=== PATIENT | male | born 1995 | race Hispanic/Latino ===

== ENCOUNTER 2018-12-23 11:31 | Emergency (ER) | payer SELFPAY ==
[2018-12-23 11:47] LABS: #Basophils 0.1 thou/uL (0.0-0.2); #Eosinphils 0.3 thou/uL (0.0-0.7); #Lymphocytes 2.3 thou/uL (1.20-3.40); #Monocytes 0.7 thou/uL (0.11-0.59); #Neutrophils 7.4 thou/uL (1.40-6.50); %Basophils 1.1 % (0.0-1.0); %Eosinophils 2.9 % (0.0-10.0); %Lymphocytes 21.4 % (21.0-51.0); %Monocytes 6.5 % (0.0-10.0); %Neutrophils 68.1 % (42.0-75.0); Hemoglobin 16.1 g/dL (14.0-18.0); Mean Corpuscular HGB CONC 33.1 g/dL (32.0-36.0); Mean Corpuscular Hemoglobin 28.4 pg (27.0-31.0); Mean Corpuscular Volume 85.7 fL (78.0-98.0); Platelet Count 322 thou/uL (130-400); RBC Distribution Width 11.6 % (11.5-14.5); Red Blood Cell (RBC) Count 5.68 mill/uL (4.70-6.10); White Blood Cell (WBC) Count 10.8 thou/uL (4.8-10.8)
--- NOTE | 2018-12-23 11:59 | CT ---
CT HEAD WITHOUT CONTRAST: Date: 12/23/18 Multiple axial tomograms obtained through head without IV enhancement. INDICATION: Trauma. FINDINGS: Ventricles have normal size and position. No evidence of intracranial hemorrhage. No mass, edema, inf arct, or other acute process identified. The visualized sinus and mastoids are well aerated. IMPRESSION: No acute abnormality identified. POS: [facility]
[2018-12-23 12:02] LABS: ALT (SGPT) 20 U/L (8-55); AST (SGOT) 24 U/L (5-34); Albumin 4.8 g/dL (3.5-5.0); Alkaline Phosphatase 92 U/L (40-150); Anion Gap 13 mmol/L (10-20); BUN (Urea Nitrogen) 11 mg/dL (8.9-20.6); Bilirubin, Total 0.5 mg/dL (0.2-1.2); Calc. Creatinine Clearance 0 mL/min (70-130); Calcium 10.6 mg/dL (7.8-10.44); Carbon Dioxide 24 mmol/L (22-29); Chloride 106 mmol/L (98-107); Estimated GFR-MDRD Greater than 90; Globulin 3.1 g/dL (2.4-3.5); Glucose 114 mg/dL (70-105); Protein, Total 7.9 g/dL (6.0-8.3); Sodium 139 mmol/L (136-145)
--- NOTE | 2018-12-23 12:10 | CT ---
CT CERVICAL SPINE: Multiple axial tomograms were obtained through the cervical spine with multiplanar reconstruction. INDICATION: Trauma. 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 Cervical vertebrae otherwise maintain normal height and alignme nt. Mild degenerative changes are noted. Mild osteophytes are seen from the cervical vertebrae. Th ere is no evidence of compression deformity. No evidence of fracture. IMPRESSION: No acute fracture identified. POS: [facility]
[2018-12-23] MEDS ORDERED: Ketorolac Tromethamine 30 MG/ML VIAL ONE (12:23)
--- NOTE | 2018-12-23 12:32 | CT ---
CT CHEST AND ABDOMEN AND PELVIS: Multiple axial tomograms were obtained through the chest, abdomen, and pelvis with IV enhancement. INDICATION: Trauma. FINDINGS: CT CHEST: The lungs appear well aerated and clear. There is no evidence of effusion or pneumothorax. Mediasti num unremarkable. The bony thorax appears intact. IMPRESSION: No acute chest injury identified. CT ABDOMEN AND PELVIS: Liver, spleen, pancreas, and kidneys appear unremarkable. No evidence of solid organ injury. No kathia e fluid or blood in the abdomen or pelvis. Bowel loops unremarkable. The urinary bladder is distend ed and intact. Aorta unremarkable. The bony pelvis appears intact. IMPRESSION: No acute intraabdominal injury. CT THORACIC AND LUMBAR SPINE: Thoracic and lumbar vertebrae maintain normal height and alignment. NO compression deformity. No ev idence of acute fracture. IMPRESSION: No evidence of thoracic or lumbar spine fracture. POS: [facility]
--- NOTE | 2018-12-23 13:04 | RAD ---
XR Shoulder Lt 3 View STANDARD History: Fall. Pain. Comparison: None. Findings: No acute fracture or malalignment. Soft tissues are mildly swollen. Impression: No acute osseous abnormality.
[2018-12-23] MEDS ORDERED: Iopamidol 370 76% 100 ML VIAL ONE (14:00)
== END 2018-12-23 12:52 | disposition home or self-care (01) ==
LOC: BURERS 11:31
DX: S20.229A Contusion of unspecified back wall of thorax, initial encounter (principal); S40.012A Contusion of left shoulder, initial encounter; S40.011A Contusion of right shoulder, initial encounter; V49.9XXA Car occupant (driver) (passenger) injured in unspecified traffic accident, initial encounter
CPT/HCPCS: 70450; 71260; 72125; 74177; 80053; 83605; 85025; 96374; G0390; J1885; Q9967